=== PATIENT | female | born 1970 | race Caucasian/White ===

== ENCOUNTER → 2016-10-13 | Outpatient (CLI) | payer OTHER | LOC: RAD 14:37 | DX: R00.1 Bradycardia, unspecified (principal); R50.9 Fever, unspecified; Z88.2 Allergy status to sulfonamides | CPT/HCPCS: 71020; 93270 ==

== ENCOUNTER → 2016-11-22 | Outpatient (CLI) | payer OTHER | LOC: HEART 5 11-10 10:00 | DX: I20.9 Angina pectoris, unspecified (principal); R00.1 Bradycardia, unspecified | CPT/HCPCS: 93306 ==

== ENCOUNTER → 2017-01-16 | Outpatient (CLI) | payer OTHER | LOC: HEART 5 08:57 | DX: I20.9 Angina pectoris, unspecified (principal) | CPT/HCPCS: 78452; A9502; J2785 ==

== ENCOUNTER 2020-10-11 08:41 | Emergency (ER) | payer OTHER ==
[~2020-10-11 08:41] MED LIST: ASPIRIN CHEWABL81 MG PO
[2020-10-11] MEDS ORDERED: MEDROL DOSEPAK 24 MG PO (11:20)
[2020-10-11] MEDS ORDERED: CYCLOBENZAPRINE10 MG PO (11:20)
== END 2020-10-11 11:59 | disposition home or self-care (01) ==
LOC: ER1 08:41
DX: M51.17 Intervertebral disc disorders with radiculopathy, lumbosacral region (principal); E03.9 Hypothyroidism, unspecified; Z88.2 Allergy status to sulfonamides
CPT/HCPCS: 72131; 81001; 96372; 99284; J1100; J1885

== ENCOUNTER → 2020-10-29 | Outpatient (CLI) | payer OTHER ==
[~2020-10-29] MED LIST changes: +CYCLOBENZAPRINE10 MG PO; +MEDROL DOSEPAK 24 MG PO
== END ==
LOC: CATH 13:00
DX: Z01.812 Encounter for preprocedural laboratory examination (principal); R55 Syncope and collapse; Z20.822 Contact with and (suspected) exposure to COVID-19
CPT/HCPCS: 87635

== ENCOUNTER → 2020-11-11 | Outpatient (CLI) | payer OTHER | LOC: HEART 5 09:30 | DX: R55 Syncope and collapse (principal); R00.2 Palpitations; I34.0 Nonrheumatic mitral (valve) insufficiency; I07.1 Rheumatic tricuspid insufficiency | CPT/HCPCS: 93306 ==

== ENCOUNTER 2021-06-29 13:08 | Emergency (ER) | payer OTHER | END 2021-06-29 14:50 | disposition home or self-care (01) | LOC: ER1 13:08 | DX: S90.31XA Contusion of right foot, initial encounter (principal); W22.8XXA Striking against or struck by other objects, initial encounter; Z88.2 Allergy status to sulfonamides | CPT/HCPCS: 73630; 96372; 99283; J1885 ==

== ENCOUNTER → 2021-08-16 | Outpatient (CLI) | payer OTHER | LOC: EMI 08-12 13:00 → MRI 10:09 | DX: M50.121 Cervical disc disorder at C4-C5 level with radiculopathy (principal) | CPT/HCPCS: 72141 ==

== ENCOUNTER 2022-04-03 00:06 | Inpatient (IN) | payer OTHER ==
[~2022-04-03] VITALS: Ht 162.6 cm; Wt 59.0 kg
[2022-04-03 00:52] LABS: HEMOGLOBIN 11.6 gm/dl (12.3-15.3); RED BLOOD COUNT 3.59 M/UL (4.00-5.10); WHITE BLOOD COUNT 6.3 K/UL (4.5-11.0)
[2022-04-03 01:18] LABS: BUN/CREATININE RATIO 9 (0-10)
[2022-04-03] MEDS ORDERED: ONDANSETRON HCL4 MG PO (10:14)
[2022-04-03] MEDS ORDERED: PROZAC 20 MG CA20 MG PO (10:14)
[2022-04-03] MEDS ORDERED: LEVOTHYROXINE200 MC1 PO (10:14)
[2022-04-03] MEDS ORDERED: GABAPENTIN300 MG PO (10:14)
[2022-04-03] MEDS ORDERED: LAMOTRIGINE100 MG PO (10:14)
[2022-04-03] MEDS ORDERED: LEVOCETIRIZINE D5 MG PO (10:15)
[2022-04-03] MEDS ORDERED: KLONOPIN TAB 00.5 MG PO (10:15)
[2022-04-03] MEDS ORDERED: PRIMIDONE50 MG PO (10:16)
[2022-04-03] MEDS ORDERED: SUMATRIPTAN SUC25 MG PO (10:16)
[2022-04-03] MEDS ORDERED: MIRAPEX0.75 MG PO (10:16)
[2022-04-03] MEDS ORDERED: TIZANIDINE HCL4 MG PO (10:16)
[2022-04-03] MEDS ORDERED: TROKENDI XR100 MG PO (10:17)
[2022-04-03] MEDS ORDERED: VITAMIN D21250 MCG PO (10:17)
[2022-04-03] MEDS ORDERED: OMEPRAZOLE40 MG PO (10:17)
[2022-04-03] MEDS ORDERED: BARIATRIC MV-I1 EACH PO (10:18)
[2022-04-03] MEDS ORDERED: SLOW RELEASE I142 M1 PO (10:18)
[2022-04-04 02:32] LABS: HEMOGLOBIN 10.9 gm/dl (12.3-15.3); RED BLOOD COUNT 3.29 M/UL (4.00-5.10); WHITE BLOOD COUNT 7.6 K/UL (4.5-11.0)
[2022-04-04 02:37] LABS: BUN/CREATININE RATIO 6 (0-10)
== END 2022-04-04 11:02 | disposition home or self-care (01) | DRG 312 ==
LOC: ER1 00:06 → CDU 01:59 → PROG CARE 09:57
PROVIDERS: Family Medicine; Internal Medicine; ADMIT Student in an Organized Health Care Education/Training Program
PROC: B24BZZZ Ultrasonography of Heart with Aorta (ICD-10-PCS; principal; 2022-04-03)
DX: I95.2 Hypotension due to drugs (principal); I47.1 Supraventricular tachycardia; G40.909 Epilepsy, unspecified, not intractable, without status epilepticus; G25.81 Restless legs syndrome; F32.A Depression, unspecified; I08.1 Rheumatic disorders of both mitral and tricuspid valves; E03.9 Hypothyroidism, unspecified; I49.5 Sick sinus syndrome; Z98.84 Bariatric surgery status; Z87.891 Personal history of nicotine dependence; Z88.2 Allergy status to sulfonamides; Z98.51 Tubal ligation status; T42.8X5A Adverse effect of antiparkinsonism drugs and other central muscle-tone depressants, initial encounter
CPT/HCPCS: ECHO; 36415; 71045; 80048; 80053; 80061; 81001; 82550; 82553; 83036; 83605; 83735; 83880; 84100; 84439; 84443; 84484; 85025; 85379; 93005; 93270; 93306; 96374; 99285; J0461; J1650; Q0177